=== PATIENT | male | born 1995 | race African-American/Black ===

== ENCOUNTER 2019-09-24 00:21 | Emergency (ER) | payer SELFPAY ==
[2019-09-24 00:22] VITALS: BP 154/81; PULSE 89; RESP 20; TEMP 36.8; O2SAT 93; BMI 21.6
[2019-09-24 00:42] VITALS: O2SAT 94
[2019-09-24] MEDS: predniSONE 20 MG Tablet 60 MG PO (00:46)
--- NOTE | 2019-09-24 00:46 | ED.DCSUM_ITS ---
History of Present Illness Chief Complaint: Allergic Reaction Informant: Patient Onset: Today Narrative: Patient is a 23-year-old male with history of asthma and later allergy to cat dander presenting with shortness of breath. Patient was at a friend's house who has 2 cats. He did not come in direct contact with the cats. He started to have increased shortness of breath, wheezing and itching eyes. He did take 2 Benadryl prior to arrival. Patient lives up in [place] and does not have his inhaler with him. This is why he came to the emergency room. Patient has not been hospitalized for breathing since he was a small child. He is never had to be intubated. He denies any other complaints at this time. He states he was feeling well before exposure to the cat. Past Medical History - Allergies and Home Meds Allergies/Adverse Reactions: Allergies cat dander Allergy (Verified 09/24/19 00:22) Shortness of breath Sulfa (Sulfonamide Antibiotics) Allergy (Verified 09/24/19 00:22) Unknown Primary Care Physician: Care Physician,No Primary [Primary Care Provider] - Past Medical History: - - asthma Surgical History: noncontributory Smoking Status: Current every day smoker Review of Systems General: Denies: Chills, Fever, Sweats Eyes: Reports: - - itchy eyes . Denies: Visual changes - bilaterally, Diplopia ENT: Denies: Rhinorrhea, Sore throat Cardiovascular: Denies: Chest pain, Palpitations Respiratory: Reports: Dyspnea. Denies: Cough, Dyspnea on exertion Gastrointestinal: Denies: Abdominal pain, Nausea, Vomiting, Diarrhea, Melena, Hematochezia Genitourinary: Denies: Dysuria, Hematuria, Frequency Musculoskeletal: Denies: Back pain, Extremity Pain Skin: Denies: Rash, Wounds Neurological: Denies: Headache, Weakness, Numbness Physical Exam Vital Signs/Narrative: Vital Signs Temp Pulse Resp BP Pulse Ox 09/24/19 00:22 98.3 F 89 20 H 154/81 H 93 Inital Vital Signs reviewed: Yes General: Well nourished, Well developed, No Acute Distress Head: Normocephalic, Atraumatic Eyes: Perrl, EOMI, - - conjunctival injection ENT: Moist mucous membranes, No rhinorrhea, TM's clear Neck: Supple, Nontender, No JVD Cardiovascular: Regular rate, Regular rhythm, No murmurs Respiratory: No distress, Chest nontender, Wheezing - bilateral . Negative for: Diminished, Decreased Air Movement, Retractions Abdomen: Soft, Nontender, Nondistended, Normal bowel sounds Back: Nontender, Normal Inspection Extremities: Nontender, No edema Skin: Normal color, No rash Neurological: Alert, Oriented x3, Cranial nerves II-XII grossly intact, Normal Strength, Normal Sensation Psychological: Normal affect, Normal Mood Diagnostic/Tx/Re-eval - Medical Decision Making Patient is evaluated for shortness of breath and wheezing. He has a history of asthma as well as allergies to cats. He was exposed to cats. Likely he is having a reaction to the cats. Patient is given albuterol treatment in the emergency room. He does have improvement of his symptoms with this. He is ordered a DuoNeb as well but declines it. Patient started on prednisone in case he has a lingering symptoms. Patient is requesting an inhaler which she is given. Patient is counseled that he should not return to the house that has cats but states he is plan on going back there tonight. Patient not have any findings consistent with anaphylaxis. Patient does have Benadryl to take as well. Patient is counseled on signs and symptoms requiring return to the emergency room. Patient verbalizes agreement and understand this plan. Patient discharged home in stable and improved condition. ED Disposition - Plan for ED Patient: Disposition: Home or Assisted Living Diagnosis: Asthma exacerbation Instructions: ALLERGIC REACTION, Other (General), ASTHMA, Acute (Adult) Prescriptions: Prednisone [Deltasone] 40 mg PO DAILY #8 tab Prescription Printed Referrals: Care Physician,No Primary [Primary Care Provider] - Additional Instructions: You are having an asthma attack secondary to exposure to cats most likely. Please avoid any contact with cats. Please take steroids to help calm down the inflammation of the lungs. Return the emergency room should you develop any worsening symptoms. Continue to take Benadryl every 6 hours as needed.
[2019-09-24] MEDS: Ipratropium/Albuterol Sulfate 3 ML AMPUL.NEB INHALATION (00:50)
[2019-09-24 00:53] VITALS: PULSE 100; RESP 18
[2019-09-24 01:18] VITALS: BP 137/78; PULSE 82; RESP 16; O2SAT 98
== END 2019-09-24 01:21 | disposition home or self-care (01) ==
PROVIDERS: Emergency Provider Emergency Medicine
DX: J45.901 Unspecified asthma with (acute) exacerbation (principal); F17.200 Nicotine dependence, unspecified, uncomplicated; Z88.2 Allergy status to sulfonamides
CPT/HCPCS: 94640; 99283; A4216

== ENCOUNTER 2019-10-02 19:01 | Emergency (ER) | payer SELFPAY ==
[2019-10-02 19:02] VITALS: BP 133/81; PULSE 108; RESP 18; TEMP 36.9; O2SAT 96; BMI 23.6
[2019-10-02] MEDS: Ipratropium/Albuterol Sulfate 3 ML AMPUL.NEB INHALATION (20:52)
[2019-10-02] MEDS: predniSONE 20 MG Tablet 60 MG PO (21:00)
[2019-10-02 21:02] VITALS: BP 147/74; PULSE 73; RESP 18; O2SAT 98
[2019-10-02] MEDS: Albuterol 2.5 MG/3 ML VIAL.NEB. INHALATION ×2 (21:03)
--- NOTE | 2019-10-02 21:23 | ED.VIS.GEN ---
History of Present Illness Chief Complaint: Asthma Informant: Patient Onset: Today Narrative: Patient presents to the emergency department with shortness of breath. Patient states he has history of asthma. He states he rarely needs to use pro-air. 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 He was able to use his inhaler and get through work but states he feels like he needs a breathing treatment. He does not have a nebulizer at home. He has no primary care physician. Does not remember the last time he was on steroids. Past Medical History - Allergies and Home Meds Allergies/Adverse Reactions: Allergies cat dander Allergy (Verified 10/02/19 19:02) Shortness of breath Sulfa (Sulfonamide Antibiotics) Allergy (Verified 10/02/19 19:02) Unknown Primary Care Physician: Care Physician,No Primary [Primary Care Provider] - Surgical History: noncontributory Smoking Status: Current every day smoker Review of Systems General: Denies: Chills, Fever, Sweats Eyes: Denies: Visual changes - bilaterally, Diplopia ENT: Denies: Rhinorrhea, Sore throat Cardiovascular: Denies: Chest pain, Palpitations Respiratory: Reports: Dyspnea, Cough, Sputum. Denies: Dyspnea on exertion Gastrointestinal: Denies: Abdominal pain, Nausea, Vomiting, Diarrhea, Melena, Hematochezia Genitourinary: Denies: Dysuria, Hematuria, Frequency Musculoskeletal: Denies: Back pain, Extremity Pain Skin: Denies: Rash, Wounds Neurological: Denies: Headache, Weakness, Numbness Physical Exam Vital Signs/Narrative: Vital Signs Temp Pulse Resp BP Pulse Ox 10/02/19 19:02 98.5 F 108 H 18 133/81 H 96 Inital Vital Signs reviewed: Yes General: Well nourished, Well developed, No Acute Distress Head: Normocephalic, Atraumatic Eyes: Perrl, EOMI ENT: Moist mucous membranes, No rhinorrhea Neck: Supple, Nontender Cardiovascular: Regular rate, Regular rhythm, No murmurs Respiratory: No distress, Chest nontender, Rhonchi, Wheezing Abdomen: Soft, Nontender, Nondistended, Normal bowel sounds Back: Nontender, Normal Inspection Extremities: Nontender, No edema Skin: Normal color, No rash Neurological: Alert, Oriented x3, Cranial nerves II-XII grossly intact, Normal Strength, Normal Sensation Psychological: Normal affect, Normal Mood Diagnostic/Tx/Re-eval - Medical Decision Making Patient received breathing treatments and prednisone. He will be discharged home with burst prednisone for 4 additional days. I am going to refer him to primary care. ED Disposition - Plan for ED Patient: Disposition: Home or Assisted Living Diagnosis: Asthma exacerbation Instructions: ASTHMA, Acute (Adult) Prescriptions: predniSONE tablet 60 mg PO DAILY #12 tab Prescription Printed Albuterol Inhaler [Ventolin Hfa] 2 puff INHALATION Q4H PRN PRN #1 inhaler PRN Reason: Wheezing Prescription Printed Referrals: Monserrat Bhatti MD [STAFF PHYSICIAN] - As soon as possible
== END 2019-10-02 21:30 | disposition home or self-care (01) ==
PROVIDERS: Emergency Provider Emergency Medicine
DX: J45.901 Unspecified asthma with (acute) exacerbation (principal); F17.200 Nicotine dependence, unspecified, uncomplicated; Z88.2 Allergy status to sulfonamides
CPT/HCPCS: 94640; 99283

== ENCOUNTER 2019-10-18 19:15 | Emergency (ER) | payer SELFPAY ==
[2019-10-18 19:16] VITALS: BP 147/79; PULSE 79; RESP 18; TEMP 36.7; O2SAT 95; BMI 22.8
--- NOTE | 2019-10-18 20:14 | ED.VIS.GEN ---
History of Present Illness Chief Complaint: Asthma Detail of Chief Complaint: Wheezing and shortness of breath Informant: Patient Onset: Today Context: Sudden Onset - It at girlfriend's house. She has cats. He is allergic to cat dander. Timing: Continuous, Waxes and wanes Quality: Shortness of breath and wheezing Location: Respiratory Current Severity: Mild Maximum Severity: Moderate Worsened by: Exertion and exposure to cats Relieved by: Nothing Associated Symptoms: Rhinorrhea secondary to allergies Narrative: Patient is a 24-year-old male with history of asthma and allergies to cat dander. Patient presents because of difficulty breathing after staying at his girlfriend's house. Girlfriend has cats. He does report rhinorrhea. He denies fever chills. Denies headache. Denies visual, ocular auditory symptoms. He has no other complaints. Prior similar symptoms: Yes Recent Illness/Hospitalization: No - Past Medical History (1) Asthma Status: Acute Past Medical History - Allergies and Home Meds Allergies/Adverse Reactions: Allergies cat dander Allergy (Verified 10/18/19 19:18) Shortness of breath Sulfa (Sulfonamide Antibiotics) Allergy (Verified 10/18/19 19:18) Unknown Primary Care Physician: Care Physician,No Primary [Primary Care Provider] - Prior records reviewed: Yes Surgical History: noncontributory Lives: Alone Smoking Status: Current every day smoker Alcohol: None Drugs: None Review of Systems General: Denies: Chills, Fever, Malaise, Sweats Eyes: Denies: Visual changes - bilaterally, Blurred Vision - bilaterally ENT: Reports: Rhinorrhea. Denies: Bilateral ear pain, Sore throat Cardiovascular: Denies: Chest pain, Palpitations Respiratory: Reports: Dyspnea, Cough, Dyspnea on exertion. Denies: Sputum, Orthopnea, Paroxysmal nocturnal dyspnea Gastrointestinal: Denies: Nausea, Vomiting, Diarrhea Musculoskeletal: Denies: Myalgias, Arthralgias, Neck pain, Back pain, Swelling, Extremity Pain, -, - Skin: Denies: Rash, Wounds Neurological: Denies: Headache, Weakness, Parasthesia, Numbness Physical Exam Vital Signs/Narrative: Vital Signs Temp Pulse Resp BP Pulse Ox 10/18/19 19:16 98.0 F 79 18 147/79 H 95 Inital Vital Signs reviewed: Yes General: Well nourished, Well developed, No Acute Distress Head: Normocephalic, Atraumatic Eyes: Perrl, EOMI ENT: Moist mucous membranes, No rhinorrhea Neck: Supple, Nontender Cardiovascular: Regular rate, Regular rhythm, No murmurs Respiratory: No distress, Chest nontender, Wheezing - It is noted at the end of expiration. Abdomen: Soft, Nontender, Nondistended, Normal bowel sounds Back: Nontender, Normal Inspection Extremities: Nontender, No edema Skin: Normal color, No rash Neurological: Alert, Oriented x3, Cranial nerves II-XII grossly intact, Normal Strength, Normal Sensation Psychological: Normal affect, Normal Mood Diagnostic/Tx/Re-eval - Medical Decision Making Since wheezing is only noted with forced expiration he was given a prescription for albuterol MDI. No imaging or testing is indicated. ED Disposition - Plan for ED Patient: Disposition: Home or Assisted Living Diagnosis: Asthma exacerbation attacks Prescriptions: Albuterol Inhaler [Ventolin Hfa] 2 puff INHALATION Q4H PRN PRN #1 inhaler PRN Reason: Wheezing Prescription Printed Referrals: Care Physician,No Primary [Primary Care Provider] - Franchesca Torres DO [STAFF PHYSICIAN] - As Needed
[2019-10-18 20:38] VITALS: RESP 20; O2SAT 97
--- NOTE | 2019-10-18 20:40 | ED.RN ---
THIS NURSE REVIEWED D/C INSTRUCTIONS WITH PT. PT VERBALIZED UNDERSTANDING OF INSTRUCTIONS. PT DENIES FURTHER NEEDS OR QUESTIONS AT THIS TIME
== END 2019-10-18 20:41 | disposition home or self-care (01) ==
PROVIDERS: Emergency Provider Emergency Medicine
DX: J45.901 Unspecified asthma with (acute) exacerbation (principal); F17.200 Nicotine dependence, unspecified, uncomplicated; Z88.2 Allergy status to sulfonamides
CPT/HCPCS: 99282

== ENCOUNTER 2019-11-13 02:52 | Emergency (ER) | payer SELFPAY ==
[2019-11-13 02:54] VITALS: BP 102/85; PULSE 83; RESP 19; TEMP 36.6; O2SAT 93; BMI 21.9
--- NOTE | 2019-11-13 03:27 | ED.VIS.DYS ---
History of Present Illness Chief Complaint: Asthma Informant: Patient Onset: Hours - 2 Activity at onset: Sleep Timing: Continuous Quality: Wheezing Current Severity: Moderate Maximum Severity: Moderate Worsened by: Exertion Relieved by: Rest Associated Symptoms: Negative for: Cough Chest Pain: Tightness Narrative: Patient states he is allergic to cats and has asthma. He was around cat dander from his girlfriend's cat lately and he thinks that is because his asthma to flareup this morning. He does not have an albuterol inhaler anymore or any medicine the treated with and is asking for some. No recent cough, fevers, swelling in his legs, or rash. - Past Medical History (1) Asthma Status: Chronic Past Medical History - Allergies and Home Meds Allergies/Adverse Reactions: Allergies cat dander Allergy (Verified 11/13/19 02:57) Shortness of breath Sulfa (Sulfonamide Antibiotics) Allergy (Verified 11/13/19 02:57) Unknown Primary Care Physician: Doctor,Your [STAFF PHYSICIAN] - As Needed Surgical History: noncontributory Lives: Roommate Smoking Status: Current every day smoker Review of Systems General: Denies: Chills, Fever, Sweats Respiratory: Reports: Dyspnea. Denies: Cough Skin: Denies: Rash, Wounds Neurological: Denies: Headache, Weakness, Numbness Physical Exam Vital Signs/Narrative: Vital Signs Temp Pulse Resp BP Pulse Ox 11/13/19 02:54 97.8 F 83 19 H 102/85 H 93 Inital Vital Signs reviewed: Yes General: Well nourished, Well developed, No Acute Distress Head: Normocephalic, Atraumatic Cardiovascular: Regular rate, Regular rhythm, No murmurs. Negative for: Tachycardia Respiratory: No distress, Chest nontender, Wheezing. Negative for: Rales, Rhonchi Skin: Normal color, No rash Neurological: Alert, Oriented x3, Cranial nerves II-XII grossly intact, Normal Strength, Normal Sensation, Normal Gait Psychological: Normal affect, Normal Mood Diagnostic/Tx/Re-eval - Medical Decision Making Patient was given a couple puffs from an asthma inhaler and was able to give him the inhaler to take home with him. This was his preference, he wanted to avoid an aerosol as he states it is not that bad he just needs the inhaler. Given appropriate discharge instructions. ED Disposition - Plan for ED Patient: Disposition: Home or Assisted Living Diagnosis: Acute asthma exacerbation Instructions: ASTHMA, Acute (Adult) Referrals: Doctor,Your [STAFF PHYSICIAN] - As Needed
[2019-11-13 04:00] VITALS: PULSE 73; RESP 16
[2019-11-13 04:05] VITALS: RESP 18
== END 2019-11-13 04:05 | disposition home or self-care (01) ==
PROVIDERS: Emergency Provider Emergency Medicine
DX: J45.901 Unspecified asthma with (acute) exacerbation (principal); F17.200 Nicotine dependence, unspecified, uncomplicated; Z88.2 Allergy status to sulfonamides
CPT/HCPCS: 94640; 99282

== ENCOUNTER 2019-11-20 17:25 | Emergency (ER) | payer SELFPAY ==
[2019-11-20 17:26] VITALS: BP 114/70; PULSE 113; RESP 16; TEMP 37.7; O2SAT 93; BMI 19.8
--- NOTE | 2019-11-20 17:50 | CT_ITS ---
STUDY: CT ABDOMEN AND PELVIS WITH CONTRAST REASON FOR EXAM: Male, 24 years old. RIGHT LOWER QUADRANT PAIN STARTED TODAY. RADIATION DOSAGE (If Supplied By Facility): CTDIvol = ( 7.84 ) mGy, DLP = ( 293.15 ) mGycm TECHNIQUE: Transaxial images were obtained from the dome of the diaphragm to the symphysis pubis with oral contrast. Oral and amp; IV Gastrografin and amp; 100mL Isovue-300 was administered. Sagittal and coronal images were reconstructed. Individualized dose optimization techniques were used for this CT. COMPARISON: 05/31/2013 FINDINGS: Bibasilar pneumonia. The visualized portions of the heart are within normal limits. Normal liver. Normal gallbladder and extrahepatic biliary system. Normal spleen. Normal pancreas. Normal bilateral adrenal glands. Normal right kidney. Normal left kidney. Normal visualized stomach. Normal small intestine. Normal colon. The appendix is visualized and appears normal. Normal abdominal aorta. Normal inferior vena cava. Normal retroperitoneum. Normal urinary bladder. Normal abdominal wall. Normal osseous structures. CT/Abdomen/Pelvis WITH Contrast IMPRESSION: No evidence of appendicitis, acute intestinal pathology, or acute obstructive uropathy. Bibasilar pneumonia. Electronically Signed: Getachew Del Valle MD at 20:17 EST Tel , Service support ,
[2019-11-20] MEDS: 0.9% Normal Saline 1,000 ML 1000 ML IV (18:04)
[2019-11-20] MEDS: Ondansetron 4 MG/2 ML Vial IV (18:05)
[2019-11-20] MEDS: Ketorolac 30 MG/ML Syringe IV (18:08)
[2019-11-20 18:14] LABS: Absolute Lymphocyte Count 2.32 X10^3/uL (0.83-4.51); Absolute Neutrophil Count 11.6 X10^3/uL (2.0-7.7); Basophil# 0.03 X10^3/uL; Basophil% 0.2 % (0-1); Eosinophil# 0.01 X10^3/uL; Eosinophils% 0.1 % (0-5); Hematocrit 47.7 % (40-54); Hemoglobin 16.2 g/dL (13.0-16.5); Lymphocyte # 2.32 X10^3/ul (4.0); Lymphocyte % 15.3 % (19-41); Mean Corpuscular Hgb 31.4 pg (27.0-32.0); Mean Corpuscular Volume 92.4 fL (80-94); Mean Platelet Vol. 9.6 fl (6.2-12.0); Monocyte# 1.16 X10^3/uL; Monocyte% 7.7 % (0-10); NRBC Flagged by Analyzer 0 % (0-5); Neutrophil # 11.56 X10^3/uL (2.7-7.7); Neutrophil % 76.2 % (47-70); Platelet Count 199 K/mm3 (150-450); RBC Distribution Width CV 12.4 % (11.6-14.6); RBC Distribution Width SD 42.1 fl (35.1-43.9); Red Blood Count 5.16 M/mm3 (4.6-6.2); White Blood Count 15.2 K/mm3 (4.4-11.0)
[2019-11-20 18:18] VITALS: BP 123/74; PULSE 91; RESP 16; O2SAT 97
[2019-11-20 18:35] LABS: ALB/GLOB Ratio 0.9 RATIO (0.9-2.4); AST(SGOT) 29 U/L (15-37); Alanine Aminotransfer ALT/SGPT 61 U/L (16-61); Alkaline Phosphatase 77 U/L (45-117); Anion Gap 6 (5-15); BUN 11 mg/dL (7-18); BUN/Creat Ratio 10.8 RATIO (10-20); Calcium,Total 8.7 mg/dL (8.5-10.1); Chloride 103 mmol/L (98-107); Creatinine, Serum 1.02 mg/dL (0.70-1.30); EST Glomerular Filtration Rate 96 mL/min (>60); Est Glom Filt Rate - Afr Amer 116 mL/min (>60); Estimated Creatinine Clearance 100.05 ml/min; Globulin 4.4 g/dL (2.2-4.2); Glucose 103 mg/dL (74-106); Potassium 3.9 mmol/L (3.5-5.1); Protein, Total 8.4 g/dL (6.4-8.2); Sodium Level 137 mmol/L (136-145)
[2019-11-20 18:36] VITALS: O2SAT 99
[2019-11-20 19:25] LABS: Mucous, Urine 0 SEEN /hpf (<or=2+); Red Blood Cells-Urine 0 SEEN /hpf (0-5); Squamous Epithelial Cells - UA 0 SEEN /hpf (0-5)
--- NOTE | 2019-11-20 19:25 | RAD_ITS ---
STUDY: X-RAY CHEST REASON FOR EXAM: Male, 24 years old. COUGH, SOB AND SLIGHT FEVER. TECHNIQUE: Frontal and lateral views of the chest. COMPARISON: 06/01/2016 FINDINGS: Mild right perihilar pneumonia. There is no demonstrated pleural abnormality. Normal size heart. Normal mediastinum and sarah beth. Normal visualized pulmonary arteries. Normal visualized aortic arch and descending thoracic aorta. Normal visualized thoracic spine. Normal visualized ribs, clavicles, and shoulders. There is no demonstrated abnormality of the visualized soft tissue structures of the upper abdomen. RAD/Chest PA and Lateral IMPRESSION: Mild right perihilar pneumonia. Electronically Signed: Getachew Del Valle MD at 20:01 EST Tel , Service support ,
[2019-11-20 19:38] LABS: Color, Urine Yellow (Yellow); Glucose, Dipstick Normal (Normal); Ketone-Dipstick 5 mg/dl (Negative); Leukocyte Esterase-Dipstick 25 /ul (Negative); Nitrite-Dipstick Negative (Negative); Occult Blood-Urine Negative /ul (Negative); Protein-Dipstick 30 mg/dl (Negative); Urine Bilirubin Dipstick Negative (Negative); Urine Clarity Clear (Clear); Urine Urobilinogen 4 mg/dl (Normal)
[2019-11-20 19:49] LABS: White Blood Cells 5-10 SEEN /hpf (0-5)
[2019-11-20 19:50] LABS: Bacteria RARE /hpf (None Seen)
[2019-11-20 20:16] VITALS: BP 123/74; PULSE 91; O2SAT 97
--- NOTE | 2019-11-20 20:31 | ED.VIS.GEN ---
History of Present Illness Chief Complaint: Cough Informant: Patient Onset: Days Context: Gradual Onset Timing: Continuous Current Severity: Moderate Maximum Severity: Moderate Narrative: The patient is a 24-year-old male with medical history significant for asthma the presents to the emergency department fever, chills, nausea, and vomiting. He states that he had recent upper respiratory illness and was on steroids. He states that he is feeling better, but over the past 24 hours, he has had a new illness. He has had a scant cough. He states that he had 10 episodes of vomiting yesterday. Today, he had a fever and just generalized malaise. He has no history of prior abdominal surgery. He states he is otherwise been in his normal state of health. Past Medical History - Allergies and Home Meds Allergies/Adverse Reactions: Allergies cat dander Allergy (Verified 11/20/19 17:26) Shortness of breath Sulfa (Sulfonamide Antibiotics) Allergy (Verified 11/20/19 17:26) Unknown Primary Care Physician: Care Physician,No Primary [Primary Care Provider] - Surgical History: noncontributory Smoking Status: Current every day smoker Review of Systems General: Reports: Fever. Denies: Chills, Sweats Eyes: Denies: Visual changes - bilaterally, Diplopia ENT: Denies: Rhinorrhea, Sore throat Cardiovascular: Denies: Chest pain, Palpitations Respiratory: Reports: Cough. Denies: Dyspnea, Dyspnea on exertion Gastrointestinal: Reports: Abdominal pain, Nausea, Vomiting. Denies: Diarrhea, Melena, Hematochezia Genitourinary: Denies: Dysuria, Hematuria, Frequency Musculoskeletal: Denies: Back pain, Extremity Pain Skin: Denies: Rash, Wounds Neurological: Denies: Headache, Weakness, Numbness Physical Exam Vital Signs/Narrative: Vital Signs Temp Pulse Resp BP Pulse Ox 11/20/19 20:16 91 123/74 H 97 11/20/19 18:18 91 16 123/74 H 97 11/20/19 17:26 99.8 F H 113 H 16 114/70 93 Inital Vital Signs reviewed: Yes General: Well nourished, Well developed, No Acute Distress Head: Normocephalic, Atraumatic Eyes: Perrl, EOMI ENT: Moist mucous membranes, No rhinorrhea Neck: Supple, Nontender Cardiovascular: Regular rate, Regular rhythm, No murmurs Respiratory: No distress, Chest nontender, Decreased Air Movement Abdomen: Soft, Nondistended, Normal bowel sounds, Tender. Negative for: Guarding, Rebound tenderness Back: Nontender, Normal Inspection Extremities: Nontender, No edema Skin: Normal color, No rash Neurological: Alert, Oriented x3, Cranial nerves II-XII grossly intact, Normal Strength, Normal Sensation Psychological: Normal affect, Normal Mood Diagnostic/Tx/Re-eval Clinical Impression(s) from Imaging Studies Abdomen/Pelvis CT 11/20/19 17:50 IMPRESSION: No evidence of appendicitis, acute intestinal pathology, or acute obstructive uropathy. Bibasilar pneumonia. Electronically Signed: Getachew Del Valle MD at 20:17 EST Tel , Service support , Chest X-Ray 11/20/19 19:25 IMPRESSION: Mild right perihilar pneumonia. Electronically Signed: Getachew Del Valle MD at 20:01 EST Tel , Service support , Abnormal Lab Results 11/20/19 11/20/19 11/20/19 18:02 18:02 19:15 WBC 15.2 H RBC 5.16 Hgb 16.2 Hct 47.7 MCV 92.4 MCH 31.4 MCHC 34.0 RDW Std Deviation 42.1 RDW Coeff of [place] 12.4 Plt Count 199 MPV 9.6 Immature Gran % (Auto) 0.500 Neut % (Auto) 76.2 H Lymph % (Auto) 15.3 L Evans % (Auto) 7.7 Eos % (Auto) 0.1 Baso % (Auto) 0.2 Absolute Neuts (auto) 11.6 H Absolute Lymphs (auto) 2.32 Nucleated RBC % 0 Sodium 137 Potassium 3.9 Chloride 103 Carbon Dioxide 28.0 Anion Gap 6 BUN 11 Creatinine 1.02 Estim Creat Clear Calc 100.05 Est GFR (MDRD) Af Amer 116 Est GFR (MDRD) Non-Af 96 BUN/Creatinine Ratio 10.8 Glucose 103 Calcium 8.7 Total Bilirubin 1.10 H AST 29 ALT 61 Alkaline Phosphatase 77 Total Protein 8.4 H Albumin 4.0 Globulin 4.4 H Albumin/Globulin Ratio 0.9 Urine Color Yellow Urine Clarity Clear Urine pH 7.0 Ur Specific [place] 1.010 Urine Protein 30 H Urine Glucose (UA) Normal Urine Ketones 5 H Urine Occult Blood Negative Urine Nitrite Negative Urine Bilirubin Negative Urine Urobilinogen 4 H Ur Leukocyte Esterase 25 H Urine RBC 0 SEEN Urine WBC 5-10 SEEN Ur Squamous Epith Cells 0 SEEN Urine Bacteria RARE Urine Mucus 0 SEEN - Medical Decision Making The patient presents with nausea, vomiting, fever, and abdominal pain. He was tender in his right lower quadrant. He also had a scant cough. He was given a nebulized breathing treatment, fluids, Toradol, and Zofran. He is feeling markedly improved. X-ray shows a perihilar infiltrate. Given his abdominal pain and fever, I did want to rule out acute appendicitis. Screening labs do show leukocytosis but were otherwise unremarkable. CT of the abdomen and pelvis shows a normal appendix but scant bibasilar pneumonia. On reevaluation, the patient has no hypoxia or tachypnea. I did discuss his results with him. At this point, I do feel that he is safe for outpatient therapy. I am going to start him on Levaquin. He is given his first dose here. I did pediatric genetic counselor him that if he is not improving within the next 12 or 24 hours that he should return. He is comfortable with this plan of care. Impression 1. Right lower lobe pneumonia ED Disposition - Plan for ED Patient: Disposition: Home or Assisted Living Instructions: PNEUMONIA (Adult) Prescriptions: Levofloxacin [Levaquin] 750 mg PO DAILY #6 tab Prescription Printed proMETHazine tablet [Phenergan] 25 mg PO Q6H PRN PRN #10 tab PRN Reason: Nausea Prescription Printed Referrals: Care Physician,No Primary [Primary Care Provider] -
[2019-11-20] MEDS: levoFLOXacin 750 MG Tablet PO (20:43)
[2019-11-20 20:45] VITALS: BP 125/67; PULSE 80; RESP 20; O2SAT 94
== END 2019-11-20 20:46 | disposition home or self-care (01) ==
LOC: ED 18:24
PROVIDERS: Emergency Provider Emergency Medicine
DX: J18.9 Pneumonia, unspecified organism (principal); F17.200 Nicotine dependence, unspecified, uncomplicated; J45.909 Unspecified asthma, uncomplicated; Z88.2 Allergy status to sulfonamides
CPT/HCPCS: 71046; 74177; 80053; 81001; 85025; 87804; 99284; J7030; Q9967; J2405